=== PATIENT | female | born 2000 | race Caucasian/White ===

== ENCOUNTER → 2023-09-14 | Outpatient (CLI) | payer OTHER ==
[2023-09-14 19:17] LABS: Basophils # (A) 0.06 X 10*3/uL (0.00-0.10); Eosinophils # (A) 0.12 X 10*3/uL (0.04-0.35); HCT 41.8 % (37.2-46.3); HGB 13.9 g/dL (12.0-15.0); Lymphocytes # (A) 2.02 X 10*3/uL (0.90-5.00); Lymphocytes % (A) 33.8 %; MCHC 33.3 g/dL (32.0-37.0); MCV 90.3 FL (80.0-97.0); Mean Platelet Volume 10.1 FL (9.5-12.2); Monocytes # (A) 0.64 X 10*3/uL (0.20-1.00); Monocytes % (A) 10.7 %; NRBC Per 100 WBC 0 X 10*3/uL (0.00-0.01); Neutrophils # (A) 3.11 X 10*3/uL (1.80-7.70); Neutrophils % (A) 52.2 %; Platelet Count 431 X 10*3/uL (140-440); RBC 4.63 X 10*6/uL (4.10-5.20); WBC 5.97 X 10*3/uL (4.50-10.00)
[2023-09-14 19:43] LABS: Protein, Total 7.5 g/dL (6.2-8.2)
[2023-09-14 19:49] LABS: ALT 59 U/L (8-44); AST 29 U/L (13-35); Albumin 4.8 g/dL (3.8-4.9); Alkaline Phosphatase 67 U/L (41-126); BUN/Creat Ratio 16.67 Ratio (12.00-20.00); Calcium 9.9 mg/dL (8.7-10.3); Chloride 103 mmol/L (96-109); Chol/HDL Ratio 3.84 Ratio; Ferritin 37.2 ng/mL (10.0-291.0); Globulin 3.2 g/dL (1.6-3.3); Glucose 98 mg/dL (70-110); Hepatitis A Ab, Total Reactive (Nonreactive); Hepatitis B Surface Antigen Nonreactive (Nonreactive); Hepatitis C IgG Antibody Nonreactive (Nonreactive); Iron 33 UG/DL (50-170); LDL Cholesterol,Calculated 80.9 mg/dL (0.0-131.0); Potassium 4.1 mmol/L (3.5-5.5); Sodium 138 mmol/L (135-145); Total Bilirubin 0.2 mg/dL (0.3-1.2); Total Iron Binding Capacity 500 UG/DL (228-460)
[2023-09-14 20:59] LABS: Hepatitis B Surface AB- Quant 3.5 mIU/mL
[2023-09-14 21:17] LABS: HIV 2 AB Non-Reactive (Non-Reactive); HIV AB P24 Non-Reactive (Non-Reactive); HIV P24 AG Non-Reactive (Non-Reactive)
[2023-09-14 21:27] LABS: Ceruloplasmin 23.2 mg/dL (20.0-60.0)
[2023-09-15 13:08] LABS: Smooth Muscle Antibody 7 UNITS (<20)
[2023-09-16 08:38] LABS: Albumin 4.28 g/dL (3.80-4.90); Gamma Globulin 1.31 g/dL (0.70-1.50)
== END | disposition home or self-care (01) ==
LOC: LABWHC1 11:44
PROVIDERS: ATTEND Nurse Practitioner Family
DX: Z30.42 Encounter for surveillance of injectable contraceptive (principal); Z20.2 Contact with and (suspected) exposure to infections with a predominantly sexual mode of transmission; R74.01 Elevation of levels of liver transaminase levels
CPT/HCPCS: 36415; 80053; 80061; 81596; 82103; 82390; 82728; 83036; 83516; 83540; 83550; 84165; 85025; 86038; 86706; 86708; 86780; 86803; 87340; 87390